=== PATIENT | male | born 1940 | race Two or more races ===

== ENCOUNTER 2024-02-20 19:19 | Inpatient (IN) | payer OTHER ==
[~2024-02-20] VITALS: Ht 180.3 cm; Wt 77.1 kg
[2024-02-20] MEDS ORDERED: SYNTHROID88 MCG PO (20:24)
[2024-02-20] MEDS ORDERED: COZAAR25 MG PO (20:24)
[2024-02-20] MEDS ORDERED: CEFTRIAXONE SODIUM 2,000 MG VIAL IV STA (21:17)
[2024-02-20 22:05] LABS: HEMATOCRIT 47.5 % (39.0-48.0); HEMOGLOBIN 16.1 g/dL (13-16.00); MEAN CELL VOLUME 94.4 fL (80.0-100.00); MEAN CORPUSCULAR HGB CONC 33.9 g/dl (32.0-36.0); PLATELET COUNT 182 K/uL (150-450); RED BLOOD COUNT 5.03 M/uL (4.00-6.00); RED CELL DISTRIBUTION WIDTH 13.1 % (11.5-14.5)
[2024-02-20 22:09] LABS: URINE APPEARANCE Turbid; URINE BILIRRUBIN Negative (NEGATIVE); URINE BLOOD Large; URINE COLOR Dark Yellow; URINE GLUCOSE Negative (NEGATIVE); URINE KETONE 15 (NEGATIVE); URINE LEUKOCYTE Moderate; URINE NITRATE Negative
[2024-02-20 22:12] LABS: URINE BACTERIA 3057.5 uL (0.0-1933); URINE EPITHELIAL CELLS 1.7 uL (0.0-38.8); URINE RBC 1960.3 uL (0.0-20.8); URINE WBC 3593.8 uL (0.0-23.2)
[2024-02-20 22:15] LABS: CALCIUM 9.2 mg/dL (8.5-10.1); CREATININE SERUM 1.19 mg/dL (0.70-1.30); GFR 58.53; POTASSIUM 4.03 mEq/L (3.5-5.1)
[2024-02-20 22:20] LABS: URINE CAST 0.58 uL (0.0-1.40); URINE PROTEIN 100 (NEGATIVE)
[2024-02-20 22:25] LABS: URINE YEAST NEGATIVE /hpf
[2024-02-20] MEDS ORDERED: ACETAMINOPHEN 500 MG GEL..CAP PO PRN (23:45)
[2024-02-20] MEDS ORDERED: 0.9 % SODIUM CHLORIDE 1,000 ML IV SCH (23:45)
[2024-02-21 02:13] LABS: INR 1.13; PARTIAL THROMBOPLASTIN TIME 32.1 SECONDS (22.0-34.0); PROTHROMBIN TIME 12.2 SECONDS (9.0-11.5)
[2024-02-21] MEDS ORDERED: LEVOTHYROXINE SODIUM 25 MCG TABLET PO SCH (06:00)
[2024-02-21 08:00] VITALS: BP 126/61; O2SAT 97
[2024-02-21] MEDS ORDERED: TAMSULOSIN HCL 0.4 MG CAP PO SCH (09:00)
[2024-02-21] MEDS ORDERED: FAMOTIDINE/PF 20 MG in 0.9 % SODIUM CHLORIDE 8 ML IV PUSH SCH (09:00)
[2024-02-21] MEDS ORDERED: PREDNISONE 5 MG TABLET PO SCH (09:00)
[2024-02-21] MEDS ORDERED: LOSARTAN POTASSIUM 25 MG TABLET PO SCH (09:00)
[2024-02-21] MEDS ORDERED: CEFTRIAXONE SODIUM 2,000 MG in 0.9 % SODIUM CHLORIDE 100 ML IV SCH (09:00)
[2024-02-21] MEDS ORDERED: PYRIDOSTIGMINE BROMIDE 60 MG TABLET PO SCH (09:00)
[2024-02-21] MEDS ORDERED: ENOXAPARIN SODIUM 40 MG/0.4 ML SYRINGE SUBCUTANEO SCH (09:00)
[2024-02-21] MEDS ORDERED: LACTOBACILLUS ACIDOPHILUS 1 CAP CAP PO SCH (17:00)
[2024-02-22] VITALS: BP 121/57; O2SAT 99
[2024-02-22] MEDS ORDERED: LEVOTHYROXINE SODIUM 88 MCG TABLET PO SCH (06:00)
[2024-02-22 08:00] VITALS: BP 144/70; O2SAT 97
[2024-02-22 08:44] LABS: HEMATOCRIT 42.2 % (39.0-48.0); HEMOGLOBIN 14.4 g/dL (13-16.00); MEAN CORPUSCULAR HEMOGLOBIN 32.7 pg (27.00-32.0); MEAN CORPUSCULAR HGB CONC 34.1 g/dl (32.0-36.0); PLATELET COUNT 150 K/uL (150-450); RED CELL DISTRIBUTION WIDTH 13.4 % (11.5-14.5)
[2024-02-22] MEDS ORDERED: LOSARTAN POTASSIUM 100 MG TABLET PO SCH (09:00)
[2024-02-22 15:02] VITALS: BP 128/72; O2SAT 98
[2024-02-23] VITALS: BP 134/75; O2SAT 98
[2024-02-23 08:54] VITALS: BP 155/88; O2SAT 96
[2024-02-23 17:44] VITALS: BP 150/70; O2SAT 98
[2024-02-24 01:55] VITALS: BP 121/65; O2SAT 95
[2024-02-24 06:53] LABS: HEMATOCRIT 41.8 % (39.0-48.0); HEMOGLOBIN 14.8 g/dL (13-16.00); MEAN CELL VOLUME 93.1 fL (80.0-100.00); MEAN CORPUSCULAR HGB CONC 35.5 g/dl (32.0-36.0); PLATELET COUNT 200 K/uL (150-450); RED BLOOD COUNT 4.49 M/uL (4.00-6.00); RED CELL DISTRIBUTION WIDTH 13.3 % (11.5-14.5)
[2024-02-24 07:45] LABS: CALCIUM 9.2 mg/dL (8.5-10.1); CREATININE SERUM 0.98 mg/dL (0.70-1.30); GFR 73.22; POTASSIUM 4.26 mEq/L (3.5-5.1)
[2024-02-24 08:00] VITALS: BP 128/78; O2SAT 97
== END 2024-02-24 20:24 | disposition home or self-care (01) | DRG 690 ==
LOC: ER 19:21 → SEC-K 02-21 00:55 → SURG 02-21 00:55
PROVIDERS: General Practice; Internal Medicine Infectious Disease; ADMIT Internal Medicine; ATTEND Internal Medicine
PROC: BW21ZZZ Computerized Tomography (CT Scan) of Abdomen and Pelvis (ICD-10-PCS; principal; 2024-02-20)
DX: N39.0 Urinary tract infection, site not specified (principal); N41.9 Inflammatory disease of prostate, unspecified; G70.00 Myasthenia gravis without (acute) exacerbation; I10 Essential (primary) hypertension; E03.9 Hypothyroidism, unspecified; Z88.0 Allergy status to penicillin